=== PATIENT | male | born 1985 | race American Indian/Alaskan Native ===

== ENCOUNTER 2016-12-03 12:47 | Emergency (ER) | payer OTHER, BC ==
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
[2016-12-03 13:12] VITALS: BP 153/93
--- NOTE | 2016-12-03 14:00 | XRay Report ---
AP AND LATERAL LUMBOSACRAL SPINE: History: Back pain. The vertebral bodies are well mineralized and normal in alignment and vertebral height with well preserved interspace distances. The visualized portions of the posterior elements are normal. IMPRESSION: Normal study.
[2016-12-03] MEDS ORDERED: MOTRIN PO ONE (17:09)
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
== END 2016-12-03 17:19 | disposition home or self-care (01) ==
LOC: ED 12:47
DX: S39.012A Strain of muscle, fascia and tendon of lower back, initial encounter (principal); V89.2XXA Person injured in unspecified motor-vehicle accident, traffic, initial encounter; Y93.89 Activity, other specified; Y92.89 Other specified places as the place of occurrence of the external cause; Y99.8 Other external cause status
CPT/HCPCS: 72100; 99283